=== PATIENT | male | born 1965 | race Caucasian/White ===

== ENCOUNTER → 2017-10-21 | Outpatient (REF) ==
[~2017-10-21] MED LIST: CEPH-13 PO; FAMO20TA28 PO; HYDR-389 PO; IBUP800T37 PO; LOR5/325 PO; ONDA4TAB PO; OXYC-865 PO; PRO25 PO; TAMS0.4C25 PO
== END ==
LOC: AUD 09:45
PROVIDERS: ATTEND Internal Medicine
DX: Z01.10 Encounter for examination of ears and hearing without abnormal findings (principal)
CPT/HCPCS: 92552

== ENCOUNTER → 2018-10-13 | Outpatient (REF) | LOC: AUD 09:45 | PROVIDERS: ATTEND Internal Medicine | DX: Z01.12 Encounter for hearing conservation and treatment (principal) | CPT/HCPCS: 92552 ==